=== PATIENT | female | born 1955 | race Caucasian/White ===

== ENCOUNTER 2023-09-27 10:40 | Observation (INO) | payer OTHER ==
[~2023-09-27] VITALS: Ht 157.5 cm; Wt 63.0 kg
[2023-09-27 10:50] VITALS: BP 106/63; PULSE 128; RESP 18; TEMP 97.6; O2SAT 95
[2023-09-27] MEDS ORDERED: cefTRIAXone 1,000 MG in DEXT 5% MINI-BAG PLUS 50 ML IV ONE (11:00)
[2023-09-27] MEDS ORDERED: NACL 0.9% 1,500 ML IV SCH (11:00)
[2023-09-27 11:31] LABS: BASOPHILS # (AUTO) 0.1 K/uL (0.00-0.22); BASOPHILS % (AUTO) 0.6 % (0.0-2.0); EOSINOPHILS # (AUTO) 0.1 K/uL (0-0.4); EOSINOPHILS % (AUTO) 0.7 % (0.0-4.0); HEMATOCRIT 28.7 % (36-48); HEMOGLOBIN 9.5 g/dL (12.0-16.0); LYMPHOCYTES # (AUTO) 0.9 K/uL (2.5-16.5); MEAN CORPUSCULAR HEMOGLOBIN 25 pg (27-31); MEAN CORPUSCULAR HGB CONC 33 g/dL (33-37); MEAN CORPUSCULAR VOLUME 75.8 fL (80-94); MONOCYTES # (AUTO) 0.6 K/uL (0.8-1.0); MONOCYTES % (AUTO) 4.7 % (1.7-9.3); NEUTROPHILS # (AUTO) 11.6 K/uL (1.8-7.7); PLATELET COUNT (AUTO) 321 K/uL (140-450); RED BLOOD CELL COUNT(AUTO) 3.79 MIL/uL (4.20-5.40); RED CELL DISTRIBUTION WIDTH 15.2 % (11.6-13.7); WHITE BLOOD COUNT (AUTO) 13.3 K/uL (4.8-10.8)
[2023-09-27 12:08] LABS: LACTIC ACID 1.9 mmol/L (0.4-2.0)
[2023-09-27] MEDS ORDERED: cefTRIAXone 1,000 MG VIAL ONE (12:13)
[2023-09-27 12:40] VITALS: O2SAT 92
[2023-09-27 12:46] LABS: ANION GAP 14.4 (8-16); CALCIUM 8.9 mg/dL (8.5-10.1); CREATININE 0.8 mg/dL (0.6-1.3); POTASSIUM 3.4 mmol/L (3.5-5.1)
[2023-09-27 12:50] LABS: APPEARANCE,URINE CLEAR (CLEAR); BILIRUBIN,URINE NEGATIVE (NEGATIVE); BLOOD, URINE NEGATIVE (NEGATIVE); COLOR,URINE YELLOW (YELLOW); LEUKOCYTE ESTERASE ,URINE NEGATIVE (NEGATIVE); NITRITE, URINE NEGATIVE (NEGATIVE); PROTEIN,URINE NEGATIVE (NEGATIVE); UGLUCOSE NEGATIVE (NEGATIVE); UROBILINOGEN,URINE 0.2 EU/dL (0.2 - 1)
[2023-09-27] MEDS ORDERED: LEVO0.0211 PO (13:12)
[2023-09-27] MEDS ORDERED: DOXE10CA PO (13:12)
[2023-09-27] MEDS ORDERED: GABA-636 PO (13:12)
[2023-09-27 13:46] LABS: FLU A ANTIGEN negative (NEGATIVE); FLU B ANTIGEN negative (NEGATIVE)
[2023-09-27] MEDS ORDERED: ONDANSETRON 4 MG/2 ML VIAL IVP PRN (14:10)
[2023-09-27] MEDS ORDERED: HYDROcodone/APAP 5/325 MG 1 TAB TAB PO PRN (14:10)
[2023-09-27] MEDS ORDERED: POTASSIUM CHLORIDE 10 MEQ TABER PO PRN (14:10)
[2023-09-27] MEDS ORDERED: MORPHINE SULFATE 4 MG/ML SYR IVP PRN (14:10)
[2023-09-27] MEDS ORDERED: ACETAMINOPHEN 325 MG TAB PO PRN (14:10)
[2023-09-27] MEDS ORDERED: KCL 20 MEQ IN 100 mL PREMIX 200 ML IV PRN (14:10)
[2023-09-27] MEDS: NACL 0.9% 1,000 ML IV SCH ×2 (14:41→15:13)
[2023-09-27 15:00] VITALS: BP 141/63; PULSE 100; PULSE 18; RESP 18; TEMP 97.6; O2SAT 94
[2023-09-27 16:00] VITALS: BP 148/63; PULSE 92; RESP 16; TEMP 98; O2SAT 97
[2023-09-27] MEDS: AZITHROMYCIN 500 MG in DEXTROSE 5% 250 ML IV SCH (16:23)
[2023-09-27 20:00] VITALS: PULSE 77; RESP 20
[2023-09-27] MEDS ORDERED: DOXEPIN 10 MG CAP PO STA (21:47)
[2023-09-27] MEDS ORDERED: DOXEPIN 10 MG CAP ONE (23:03)
[2023-09-28] VITALS: BP 118/63; PULSE 78; RESP 18; TEMP 98.4; O2SAT 95
[2023-09-28 05:37] LABS: BASOPHILS # (AUTO) 0.1 K/uL (0.00-0.22); BASOPHILS % (AUTO) 0.6 % (0.0-2.0); EOSINOPHILS # (AUTO) 0.4 K/uL (0-0.4); EOSINOPHILS % (AUTO) 3.9 % (0.0-4.0); HEMATOCRIT 27.2 % (36-48); HEMOGLOBIN 8.9 g/dL (12.0-16.0); LYMPHOCYTES # (AUTO) 1.2 K/uL (2.5-16.5); LYMPHOCYTES % (AUTO) 10.8 % (20.5-51.1); MEAN CORPUSCULAR HEMOGLOBIN 25 pg (27-31); MEAN CORPUSCULAR HGB CONC 33 g/dL (33-37); MEAN CORPUSCULAR VOLUME 77.3 fL (80-94); MONOCYTES # (AUTO) 0.8 K/uL (0.8-1.0); MONOCYTES % (AUTO) 7.3 % (1.7-9.3); NEUTROPHILS # (AUTO) 8.4 K/uL (1.8-7.7); NEUTROPHILS % (AUTO) 77.4 % (42.2-75.2); PLATELET COUNT (AUTO) 289 K/uL (140-450); RED BLOOD CELL COUNT(AUTO) 3.52 MIL/uL (4.20-5.40); RED CELL DISTRIBUTION WIDTH 15.7 % (11.6-13.7); WHITE BLOOD COUNT (AUTO) 10.9 K/uL (4.8-10.8)
[2023-09-28 06:07] LABS: ANION GAP 14.8 (8-16); CALCIUM 8.5 mg/dL (8.5-10.1); CARBON DIOXIDE 23.9 mmol/L (21-32); CREATININE 0.8 mg/dL (0.6-1.3); POTASSIUM 4.7 mmol/L (3.5-5.1)
[2023-09-28 08:00] VITALS: BP 116/50; PULSE 103; RESP 18; TEMP 97.2; O2SAT 96
[2023-09-28] MEDS ORDERED: ENOXAPARIN 40 MG/0.4 ML SYR SUBQ SCH (09:00)
[2023-09-28] MEDS ORDERED: DOCUSATE SODIUM 100 MG GELCAP PO SCH (09:00)
[2023-09-28] MEDS: NACL 0.9% 1,000 ML IV SCH (09:29)
[2023-09-28] MEDS ORDERED: AZIT250T11 PO (13:22)
[2023-09-28] MEDS ORDERED: ASPI-1856 PO (13:22)
[2023-09-28] MEDS: AZITHROMYCIN 500 MG in DEXTROSE 5% 250 ML IV SCH (15:03)
[2023-09-28 15:42] VITALS: BP 130/59; PULSE 108; RESP 20; TEMP 97.7
[2023-09-28 16:00] VITALS: BP 130/59; PULSE 108; RESP 20; TEMP 98.9; O2SAT 95
[2023-09-29] MEDS ORDERED: ECOTRIN 81 MG TABEC PO SCH (09:00)
== END 2023-09-28 16:50 | disposition home or self-care (01) ==
LOC: MED 10:40 → MTU 14:08
PROVIDERS: ADMIT Student in an Organized Health Care Education/Training Program; ATTEND Student in an Organized Health Care Education/Training Program
DX: I21.4 Non-ST elevation (NSTEMI) myocardial infarction (principal); Z20.822 Contact with and (suspected) exposure to COVID-19; J18.9 Pneumonia, unspecified organism; J96.01 Acute respiratory failure with hypoxia; E03.9 Hypothyroidism, unspecified; Z90.710 Acquired absence of both cervix and uterus; Z79.899 Other long term (current) drug therapy
CPT/HCPCS: 36415; 71045; 80048; 81003; 83605; 83880; 84484; 85025; 87040; 87081; 87086; 87426; 87804; 93005; 96361; 96365; 96366; 96367; 96372; 99285; G0378; J0456; J0696; J1650; J7060

== ENCOUNTER 2023-10-06 09:59 | Observation (INO) | payer OTHER ==
[~2023-10-06] VITALS: Ht 154.9 cm; Wt 58.1 kg
[~2023-10-06 09:59] MED LIST: ASPI-1856 PO; AZIT250T11 PO; DOXE10CA PO; GABA-636 PO; LEVO0.0211 PO
[2023-10-06 10:03] VITALS: BP 113/60; PULSE 127; RESP 22; TEMP 97.9; O2SAT 93
[2023-10-06 11:49] LABS: BASOPHILS # (AUTO) 0.1 K/uL (0.00-0.22); BASOPHILS % (AUTO) 0.6 % (0.0-2.0); EOSINOPHILS # (AUTO) 0.1 K/uL (0-0.4); EOSINOPHILS % (AUTO) 0.9 % (0.0-4.0); HEMATOCRIT 26.8 % (36-48); HEMOGLOBIN 8.7 g/dL (12.0-16.0); LYMPHOCYTES # (AUTO) 0.6 K/uL (2.5-16.5); LYMPHOCYTES % (AUTO) 4.9 % (20.5-51.1); MEAN CORPUSCULAR HEMOGLOBIN 25 pg (27-31); MEAN CORPUSCULAR HGB CONC 32 g/dL (33-37); MEAN CORPUSCULAR VOLUME 75.8 fL (80-94); MONOCYTES # (AUTO) 0.7 K/uL (0.8-1.0); MONOCYTES % (AUTO) 6.1 % (1.7-9.3); NEUTROPHILS # (AUTO) 9.9 K/uL (1.8-7.7); NEUTROPHILS % (AUTO) 87.5 % (42.2-75.2); PLATELET COUNT (AUTO) 343 K/uL (140-450); RED BLOOD CELL COUNT(AUTO) 3.54 MIL/uL (4.20-5.40); RED CELL DISTRIBUTION WIDTH 15.9 % (11.6-13.7); WHITE BLOOD COUNT (AUTO) 11.3 K/uL (4.8-10.8)
[2023-10-06 12:10] LABS: ALBUMIN 2.6 g/dL (3.4-5.0); ANION GAP 13.9 (8-16); CALCIUM 8.4 mg/dL (8.5-10.1); CARBON DIOXIDE 22.6 mmol/L (21-32); POTASSIUM 3.5 mmol/L (3.5-5.1); TOTAL BILIRUBIN 0.5 mg/dL (0.0-1.0); TOTAL PROTEIN, SERUM 6.9 g/dL (6.4-8.2)
[2023-10-06 12:14] LABS: FLU A ANTIGEN negative (NEGATIVE); FLU B ANTIGEN negative (NEGATIVE)
[2023-10-06] MEDS ORDERED: CEFEPIME 1,000 MG in DEXTROSE 5% 50 ML IV ONE (13:40)
[2023-10-06] MEDS ORDERED: CEFEPIME 1,000 MG VIAL ONE (13:53)
[2023-10-06] MEDS ORDERED: LOVENOX 1MG/KG Q12H SUBQ SCH (14:30)
[2023-10-06] MEDS ORDERED: ENOXAPARIN 60 MG/0.6 ML SYR SUBQ ONE (15:25)
[2023-10-06] MEDS ORDERED: ONDANSETRON 4 MG/2 ML VIAL IVP PRN (17:15)
[2023-10-06] MEDS ORDERED: MORPHINE SULFATE 4 MG/ML SYR IVP PRN (17:15)
[2023-10-06] MEDS ORDERED: MAG SULF 2000 MG/WATER PREMIX 50 ML IV PRN (17:15)
[2023-10-06] MEDS ORDERED: POTASSIUM CHLORIDE 10 MEQ TABER PO PRN (17:15)
[2023-10-06] MEDS ORDERED: KCL 20 MEQ IN 100 mL PREMIX 200 ML IV PRN (17:15)
[2023-10-06] MEDS ORDERED: HYDROcodone/APAP 5/325 MG 1 TAB TAB PO PRN (17:15)
[2023-10-06] MEDS ORDERED: ACETAMINOPHEN 325 MG TAB PO PRN (17:15)
[2023-10-06] MEDS ORDERED: LORazepam 1 MG TAB PO PRN (17:15)
[2023-10-06 20:45] VITALS: PULSE 118; PULSE 126; RESP 20; O2SAT 96
[2023-10-06] MEDS: ZOLPIDEM 5 MG TAB PO PRN (21:58)
[2023-10-07] VITALS: BP 121/67; PULSE 115; PULSE 118; RESP 20; TEMP 97; O2SAT 97
[2023-10-07 04:00] VITALS: BP 111/59; PULSE 112; PULSE 114; RESP 20; TEMP 97.1; O2SAT 97
[2023-10-07 06:38] LABS: BASOPHILS # (AUTO) 0.1 K/uL (0.00-0.22); BASOPHILS % (AUTO) 0.6 % (0.0-2.0); EOSINOPHILS # (AUTO) 0.2 K/uL (0-0.4); EOSINOPHILS % (AUTO) 1.3 % (0.0-4.0); HEMATOCRIT 27.3 % (36-48); HEMOGLOBIN 8.8 g/dL (12.0-16.0); LYMPHOCYTES % (AUTO) 8.2 % (20.5-51.1); MEAN CORPUSCULAR HEMOGLOBIN 25 pg (27-31); MEAN CORPUSCULAR HGB CONC 32 g/dL (33-37); MEAN CORPUSCULAR VOLUME 75.7 fL (80-94); MONOCYTES # (AUTO) 0.8 K/uL (0.8-1.0); MONOCYTES % (AUTO) 6.8 % (1.7-9.3); NEUTROPHILS # (AUTO) 10.5 K/uL (1.8-7.7); NEUTROPHILS % (AUTO) 83.1 % (42.2-75.2); PLATELET COUNT (AUTO) 378 K/uL (140-450); RED CELL DISTRIBUTION WIDTH 16.1 % (11.6-13.7); WHITE BLOOD COUNT (AUTO) 12.6 K/uL (4.8-10.8)
[2023-10-07 07:00] LABS: ANION GAP 14.1 (8-16); CALCIUM 8.6 mg/dL (8.5-10.1); CARBON DIOXIDE 22.9 mmol/L (21-32); CREATININE 0.9 mg/dL (0.6-1.3)
[2023-10-07 08:00] VITALS: BP 101/59; PULSE 101; PULSE 109; RESP 19; RESP 20; TEMP 97.2; O2SAT 97
[2023-10-07] MEDS: ENOXAPARIN 40 MG/0.4 ML SYR SUBQ SCH ×2 (08:43→20:33)
[2023-10-07 12:00] VITALS: BP 102/57; PULSE 113; PULSE 117; RESP 20; TEMP 97.6; O2SAT 97
[2023-10-07] MEDS: POTASSIUM CHL 10 MEQ/D5-1/2NS 1,000 ML IV SCH (14:16)
[2023-10-07 16:00] VITALS: BP 110/59; PULSE 97; PULSE 98; RESP 20; TEMP 98; O2SAT 97
[2023-10-07 20:00] VITALS: BP 102/55; PULSE 108; PULSE 112; RESP 20; TEMP 96.4; O2SAT 97
[2023-10-07] MEDS: ZOLPIDEM 5 MG TAB PO PRN (20:25)
[2023-10-08] VITALS: BP 110/67; PULSE 110; PULSE 98; TEMP 96.1; O2SAT 94
[2023-10-08 04:00] VITALS: BP 109/56; PULSE 110; TEMP 97.4; O2SAT 97
[2023-10-08] MEDS: POTASSIUM CHL 10 MEQ/D5-1/2NS 1,000 ML IV SCH (04:20)
[2023-10-08 06:28] LABS: BASOPHILS # (AUTO) 0.1 K/uL (0.00-0.22); BASOPHILS % (AUTO) 0.8 % (0.0-2.0); EOSINOPHILS # (AUTO) 0.4 K/uL (0-0.4); EOSINOPHILS % (AUTO) 2.9 % (0.0-4.0); HEMATOCRIT 24.7 % (36-48); HEMOGLOBIN 8.1 g/dL (12.0-16.0); LYMPHOCYTES # (AUTO) 0.8 K/uL (2.5-16.5); LYMPHOCYTES % (AUTO) 6.8 % (20.5-51.1); MEAN CORPUSCULAR HEMOGLOBIN 25 pg (27-31); MEAN CORPUSCULAR HGB CONC 33 g/dL (33-37); MEAN CORPUSCULAR VOLUME 75.5 fL (80-94); MONOCYTES # (AUTO) 0.7 K/uL (0.8-1.0); MONOCYTES % (AUTO) 5.9 % (1.7-9.3); NEUTROPHILS # (AUTO) 10.1 K/uL (1.8-7.7); NEUTROPHILS % (AUTO) 83.6 % (42.2-75.2); PLATELET COUNT (AUTO) 362 K/uL (140-450); RED BLOOD CELL COUNT(AUTO) 3.27 MIL/uL (4.20-5.40); RED CELL DISTRIBUTION WIDTH 15.8 % (11.6-13.7); WHITE BLOOD COUNT (AUTO) 12.1 K/uL (4.8-10.8)
[2023-10-08 06:36] LABS: ANION GAP 15.6 (8-16); CARBON DIOXIDE 22.2 mmol/L (21-32); CREATININE 0.9 mg/dL (0.6-1.3); POTASSIUM 3.8 mmol/L (3.5-5.1)
[2023-10-08 08:00] VITALS: BP 128/61; PULSE 109; PULSE 117; PULSE 72; RESP 19; RESP 20; TEMP 97.7; O2SAT 94
[2023-10-08] MEDS ORDERED: LEVOTHYROXINE 0.025 MG TAB PO SCH (09:38)
[2023-10-08] MEDS: ENOXAPARIN 40 MG/0.4 ML SYR SUBQ SCH (09:38)
[2023-10-08] MEDS ORDERED: GABAPENTIN 100 MG CAP PO SCH (10:00)
[2023-10-08] MEDS ORDERED: LOV40I SUBQ (11:58)
[2023-10-08 12:00] VITALS: BP 107/87; PULSE 111; TEMP 97.7; O2SAT 97
[2023-10-08] MEDS ORDERED: ONDA-188 SL (16:03)
[2023-10-08 16:10] VITALS: BP 127/61; PULSE 75; RESP 19; TEMP 98.7
[2023-10-09] MEDS ORDERED: LEVOTHYROXINE 0.025 MG TAB PO SCH (06:30)
[2023-10-09] MEDS ORDERED: GABAPENTIN 100 MG CAP PO SCH (09:00)
[2023-10-09] MEDS ORDERED: DOXEPIN 10 MG CAP PO SCH (09:00)
== END 2023-10-08 17:15 | disposition home or self-care (01) ==
LOC: MED 09:59 → MMU 17:12 → MTU 19:52
PROVIDERS: ADMIT Hospitalist; ATTEND Hospitalist
DX: U07.1 COVID-19 (principal); J96.01 Acute respiratory failure with hypoxia; I26.99 Other pulmonary embolism without acute cor pulmonale; R91.8 Other nonspecific abnormal finding of lung field; R62.7 Adult failure to thrive; E44.0 Moderate protein-calorie malnutrition; D64.9 Anemia, unspecified; L53.8 Other specified erythematous conditions; Z68.24 Body mass index [BMI] 24.0-24.9, adult; Z79.82 Long term (current) use of aspirin; Z79.899 Other long term (current) drug therapy; Z98.890 Other specified postprocedural states
CPT/HCPCS: 36415; 71045; 71275; 74178; 76705; 80048; 80053; 83880; 84484; 85025; 85379; 85730; 86886; 86900; 86901; 87081; 87426; 87804; 93005; 93307; 96361; 96365; 96372; 96375; 97116; 97163; 99291; G0378; J0692; J1650; J2405; Q0092; Q9967; J1644

== ENCOUNTER 2023-10-20 10:02 | Observation (INO) | payer OTHER ==
[~2023-10-20] VITALS: Ht 154.9 cm; Wt 59.9 kg
[~2023-10-20 10:02] MED LIST changes: -AZIT250T11 PO; +LOV40I SUBQ; +ONDA-188 SL
[2023-10-20 10:04] VITALS: BP 111/60; PULSE 112; RESP 16; TEMP 97.6; O2SAT 96
[2023-10-20] MEDS ORDERED: FURO-572 PO (12:02)
[2023-10-20] MEDS ORDERED: FUROSEMIDE 20 MG TAB PO ONE (12:05)
[2023-10-20] MEDS ORDERED: FUROSEMIDE 40 MG/4 ML VIAL IVP SCH (12:25)
[2023-10-20 12:44] LABS: BASOPHILS # (AUTO) 0.1 K/uL (0.00-0.22); BASOPHILS % (AUTO) 0.8 % (0.0-2.0); EOSINOPHILS # (AUTO) 0.2 K/uL (0-0.4); EOSINOPHILS % (AUTO) 1.1 % (0.0-4.0); HEMATOCRIT 25.7 % (36-48); HEMOGLOBIN 8.2 g/dL (12.0-16.0); LYMPHOCYTES # (AUTO) 0.8 K/uL (2.5-16.5); LYMPHOCYTES % (AUTO) 5.9 % (20.5-51.1); MEAN CORPUSCULAR HEMOGLOBIN 24 pg (27-31); MEAN CORPUSCULAR HGB CONC 32 g/dL (33-37); MEAN CORPUSCULAR VOLUME 74.2 fL (80-94); MONOCYTES # (AUTO) 0.9 K/uL (0.8-1.0); MONOCYTES % (AUTO) 6.5 % (1.7-9.3); NEUTROPHILS # (AUTO) 11.5 K/uL (1.8-7.7); NEUTROPHILS % (AUTO) 85.7 % (42.2-75.2); PLATELET COUNT (AUTO) 337 K/uL (140-450); RED BLOOD CELL COUNT(AUTO) 3.46 MIL/uL (4.20-5.40); RED CELL DISTRIBUTION WIDTH 17.6 % (11.6-13.7); WHITE BLOOD COUNT (AUTO) 13.4 K/uL (4.8-10.8)
[2023-10-20] MEDS ORDERED: OSC500 PO (12:48)
[2023-10-20] MEDS ORDERED: LOV80I SC (12:48)
[2023-10-20] MEDS ORDERED: CHOL400T PO (12:48)
[2023-10-20] MEDS ORDERED: SINE25 PO (12:48)
[2023-10-20 13:01] LABS: INR 1.13 (0.8-1.2); PARTIAL THROMBOPLASTIN TIME 36.5 secs (22-35.6); PROTHROMBIN TIME 11.8 secs (10.8-13.4)
[2023-10-20 13:05] LABS: ALBUMIN 2.4 g/dL (3.4-5.0); ANION GAP 13.3 (8-16); CALCIUM 8.4 mg/dL (8.5-10.1); CARBON DIOXIDE 27.1 mmol/L (21-32); POTASSIUM 4.4 mmol/L (3.5-5.1); TOTAL BILIRUBIN 0.6 mg/dL (0.0-1.0); TOTAL PROTEIN, SERUM 6.9 g/dL (6.4-8.2)
[2023-10-20] MEDS ORDERED: NACL 0.9% 1,000 ML IV ONE (13:35)
[2023-10-20] MEDS ORDERED: HYDROcodone/APAP 5/325 MG 1 TAB TAB PO PRN (15:00)
[2023-10-20] MEDS ORDERED: ALBUTEROL 0.083% 2.5 MG/3 ML NEBU INH PRN (15:00)
[2023-10-20] MEDS ORDERED: HEPARIN PER PHARMACY MC PRN (17:15)
[2023-10-20] MEDS: NACL 0.9% 1,000 ML IV SCH (18:56)
[2023-10-20 20:09] VITALS: O2SAT 99
[2023-10-20 20:40] VITALS: PULSE 107; RESP 18; O2SAT 91
[2023-10-20 20:49] VITALS: PULSE 112
[2023-10-20] MEDS ORDERED: DOXEPIN 10 MG CAP PO SCH (21:00)
[2023-10-20] MEDS: hePARIN / DEXT 5% PREMIX 250 ML IV SCH (22:02)
[2023-10-21] VITALS: BP 111/52; PULSE 100; PULSE 98; RESP 17; TEMP 97.7; O2SAT 96
[2023-10-21 04:00] VITALS: BP 108/56; PULSE 94; PULSE 95; RESP 18; TEMP 97.3; O2SAT 96
[2023-10-21 04:31] LABS: BASOPHILS # (AUTO) 0.1 K/uL (0.00-0.22); BASOPHILS % (AUTO) 0.9 % (0.0-2.0); EOSINOPHILS # (AUTO) 0.4 K/uL (0-0.4); EOSINOPHILS % (AUTO) 3.6 % (0.0-4.0); HEMATOCRIT 22.3 % (36-48); HEMOGLOBIN 7.1 g/dL (12.0-16.0); LYMPHOCYTES # (AUTO) 0.8 K/uL (2.5-16.5); LYMPHOCYTES % (AUTO) 7.6 % (20.5-51.1); MEAN CORPUSCULAR HEMOGLOBIN 24 pg (27-31); MEAN CORPUSCULAR HGB CONC 32 g/dL (33-37); MEAN CORPUSCULAR VOLUME 74.5 fL (80-94); MONOCYTES # (AUTO) 0.6 K/uL (0.8-1.0); MONOCYTES % (AUTO) 6.1 % (1.7-9.3); NEUTROPHILS # (AUTO) 8.2 K/uL (1.8-7.7); NEUTROPHILS % (AUTO) 81.8 % (42.2-75.2); PLATELET COUNT (AUTO) 310 K/uL (140-450); RED CELL DISTRIBUTION WIDTH 17.1 % (11.6-13.7)
[2023-10-21 04:45] LABS: ANION GAP 12.4 (8-16); CALCIUM 7.8 mg/dL (8.5-10.1); CARBON DIOXIDE 28.1 mmol/L (21-32); CREATININE 0.8 mg/dL (0.6-1.3); POTASSIUM 3.5 mmol/L (3.5-5.1); TOTAL BILIRUBIN 0.5 mg/dL (0.0-1.0)
[2023-10-21] MEDS: hePARIN / DEXT 5% PREMIX 250 ML IV SCH (06:07)
[2023-10-21] MEDS ORDERED: LEVOTHYROXINE 0.025 MG TAB PO SCH (06:30)
[2023-10-21] MEDS: NACL 0.9% 1,000 ML IV SCH (07:33)
[2023-10-21 10:49] VITALS: RESP 18; O2SAT 96
[2023-10-21 10:51] VITALS: BP 111/62; PULSE 94; RESP 18; TEMP 97.3; O2SAT 96
[2023-10-21 12:07] VITALS: PULSE 94; RESP 18; O2SAT 96
[2023-10-21] MEDS ORDERED: APIX5TAB PO (14:48)
[2023-10-21] MEDS ORDERED: APIXABAN 2.5 MG TAB ONE (17:20)
[2023-10-21] MEDS ORDERED: APIXABAN 2.5 MG TAB PO SCH (21:00)
== END 2023-10-21 18:44 | disposition home or self-care (01) ==
LOC: MED 10:02 → MMU 14:58 → MTU 18:49
PROVIDERS: ADMIT Internal Medicine; ATTEND Internal Medicine
DX: I26.99 Other pulmonary embolism without acute cor pulmonale (principal); I82.402 Acute embolism and thrombosis of unspecified deep veins of left lower extremity; R91.8 Other nonspecific abnormal finding of lung field; C78.7 Secondary malignant neoplasm of liver and intrahepatic bile duct; C79.70 Secondary malignant neoplasm of unspecified adrenal gland; E03.9 Hypothyroidism, unspecified; M32.9 Systemic lupus erythematosus, unspecified; Z90.710 Acquired absence of both cervix and uterus; Z85.41 Personal history of malignant neoplasm of cervix uteri; Z82.69 Family history of other diseases of the musculoskeletal system and connective tissue; Z79.899 Other long term (current) drug therapy
CPT/HCPCS: 36415; 71275; 73630; 80053; 83880; 84484; 85025; 85610; 85730; 87081; 93005; 93971; 94760; 96361; 96365; 96366; 96376; 99285; G0378; J1644; Q0092; Q9967

== ENCOUNTER 2023-11-08 04:55 | Inpatient (IN) | payer OTHER ==
[2023-11-08] VITALS (7 sets, daily range): BP systolic 106–144; BP diastolic 38–84; PULSE 120–134; RESP 18–22; TEMP 96.7–98.2; O2SAT 96–99
[~2023-11-08] VITALS: Ht 162.6 cm; Wt 64.9 kg
[~2023-11-08 04:55] MED LIST changes: +APIX5TAB PO; -ASPI-1856 PO; +CHOL400T PO; -DOXE10CA PO; +FURO-572 PO; -LOV40I SUBQ; +OSC500 PO; +SINE25 PO
[2023-11-08 05:40] LABS: BASOPHILS # (AUTO) 0.1 K/uL (0.00-0.22); BASOPHILS % (AUTO) 0.4 % (0.0-2.0); EOSINOPHILS % (AUTO) 0.1 % (0.0-4.0); HEMATOCRIT 33.1 % (36-48); HEMOGLOBIN 10.2 g/dL (12.0-16.0); LYMPHOCYTES # (AUTO) 0.8 K/uL (2.5-16.5); LYMPHOCYTES % (AUTO) 2.8 % (20.5-51.1); MEAN CORPUSCULAR HEMOGLOBIN 23 pg (27-31); MEAN CORPUSCULAR HGB CONC 31 g/dL (33-37); MEAN CORPUSCULAR VOLUME 75.4 fL (80-94); MONOCYTES # (AUTO) 1.6 K/uL (0.8-1.0); MONOCYTES % (AUTO) 5.8 % (1.7-9.3); NEUTROPHILS # (AUTO) 25.4 K/uL (1.8-7.7); NEUTROPHILS % (AUTO) 90.9 % (42.2-75.2); PLATELET COUNT (AUTO) 144 K/uL (140-450); RED BLOOD CELL COUNT(AUTO) 4.39 MIL/uL (4.20-5.40); RED CELL DISTRIBUTION WIDTH 20.8 % (11.6-13.7)
[2023-11-08 05:55] LABS: ANION GAP 27.4 (8-16); CARBON DIOXIDE 14.5 mmol/L (21-32); CREATININE 1.1 mg/dL (0.6-1.3); POTASSIUM 4.9 mmol/L (3.5-5.1); WHITE BLOOD COUNT (AUTO) 27.9 K/uL (4.8-10.8)
[2023-11-08 05:59] LABS: ALBUMIN 2.2 g/dL (3.4-5.0); BILIRUBIN,DIRECT 3.6 mg/dL (0.0-0.3); TOTAL BILIRUBIN 4.5 mg/dL (0.0-1.0); TOTAL PROTEIN, SERUM 6.7 g/dL (6.4-8.2)
[2023-11-08] MEDS: MORPHINE SULFATE 4 MG/ML SYR IVP ONE (06:08)
[2023-11-08 06:09] LABS: LACTIC ACID 10.3 mmol/L (0.4-2.0)
[2023-11-08 06:30] LABS: APPEARANCE,URINE SL CLOUDY (CLEAR); BILIRUBIN,URINE 2+ (NEGATIVE); BLOOD, URINE TRACE-I (NEGATIVE); COLOR,URINE YELLOW (YELLOW); LEUKOCYTE ESTERASE ,URINE NEGATIVE (NEGATIVE); NITRITE, URINE NEGATIVE (NEGATIVE); PROTEIN,URINE 1+ (NEGATIVE); UGLUCOSE NEGATIVE (NEGATIVE)
[2023-11-08] MEDS: NACL 0.9% 1,000 ML IV ONE (06:31)
[2023-11-08 06:41] LABS: ICTOTEST POSITIVE (NEGATIVE)
[2023-11-08 06:42] LABS: BACTERIA,URINE FEW /HPF (None Seen); RBC,URINE 0-5 /HPF (0-5); SQUAMOUS EPITHELIAL CELL,UR 0-3 (FEW) /LPF (0-3 (FEW))
[2023-11-08] MEDS ORDERED: cefTRIAXone 1,000 MG VIAL ONE (08:13)
[2023-11-08] MEDS: cefTRIAXone 1,000 MG in DEXT 5% MINI-BAG PLUS 50 ML IV ONE (08:18)
[2023-11-08] MEDS: SODIUM PHOSPHATE 118 ML ENEM RC ONE (09:19)
[2023-11-08] MEDS ORDERED: HYDROcodone/APAP 5/325 MG 1 TAB TAB PO PRN (10:55)
[2023-11-08] MEDS ORDERED: POTASSIUM CHLORIDE 10 MEQ TABER PO PRN (10:55)
[2023-11-08] MEDS ORDERED: MAGNESIUM OXIDE 400 MG TAB PO PRN (10:55)
[2023-11-08] MEDS ORDERED: ACETAMINOPHEN 325 MG TAB PO PRN (10:55)
[2023-11-08] MEDS ORDERED: MAG SULF 2000 MG/WATER PREMIX 50 ML IV PRN (10:55)
[2023-11-08 11:46] LABS: INR 2.57 (0.8-1.2); PROTHROMBIN TIME 25.8 secs (10.8-13.4)
[2023-11-08] MEDS: PIPERACILLIN/TAZOBACTAM 3.375 GM in DEXTROSE 5% 50 ML IV SCH ×2 (12:32→17:55)
[2023-11-08] MEDS: hePARIN / DEXT 5% PREMIX 250 ML IV SCH (13:01)
[2023-11-08] MEDS: Z-GUARD PASTE TP ONE (13:33)
[2023-11-08 15:17] LABS: BLOOD GAS PH 7.338 (7.35-7.45)
[2023-11-08 15:18] LABS: BLOOD GAS BASE EXCESS -14.5 mmol/L (-2.0-2.0); BLOOD GAS HCO3 9.2 mmol/L (22-26); BLOOD GAS O2 SAT% 95.4 % (92.0-98.5); BLOOD GAS PCO2 17.6 mmHg (35-45)
[2023-11-08] MEDS: SODIUM BICARBONATE 8.4% PFS 50 MEQ/50 ML SYR IVP SCH (15:37)
[2023-11-08] MEDS: SODIUM BICARBONATE 8.4% 150 MEQ in DEXTROSE 5% 1,000 ML IV SCH (20:55)
[2023-11-08] MEDS ORDERED: VANCOMYCIN PER PHARMACY MC PRN (20:55)
[2023-11-08] MEDS: AMIODARONE 450 MG in DEXTROSE 5% 250 ML IV SCH (22:00)
[2023-11-08] MEDS: VANCOMYCIN 1GM/DEXT 5% PREMIX 200 ML IV SCH (22:00)
[2023-11-08] MEDS: NACL 0.9% 500 ML IV ONE (22:44)
[2023-11-08] MEDS: SODIUM BICARBONATE 8.4% PFS 50 MEQ/50 ML SYR IVP ONE ×3 (22:45→23:07)
[2023-11-08] MEDS ORDERED: SODIUM BICARBONATE 8.4% PFS 50 MEQ/50 ML SYR IVP ONE (22:46)
[2023-11-08] MEDS: AMIODARONE 450 MG/9 ML VIAL IV ONE (22:53)
[2023-11-08] MEDS: AMIODARONE 150 MG in DEXTROSE 5% 100 ML IV ONE (22:57)
[2023-11-08] MEDS: AMIODARONE 150 MG/3 ML VIAL IV ONE (23:07)
[2023-11-08] MEDS: MORPHINE SULFATE 2 MG/ML SYR IVP PRN (23:15)
[2023-11-08] MEDS ORDERED: VANCOMYCIN 1,000 MG VIAL ONE (23:19)
[2023-11-09] VITALS (22 sets, daily range): BP systolic 86–121; BP diastolic 42–73; PULSE 99–134; RESP 18–37; TEMP 97.8–100.3; O2SAT 96–100
[2023-11-09 03:21] LABS: BASOPHILS # (AUTO) 0.1 K/uL (0.00-0.22); BASOPHILS % (AUTO) 0.2 % (0.0-2.0); HEMATOCRIT 26.8 % (36-48); HEMOGLOBIN 8.1 g/dL (12.0-16.0); LYMPHOCYTES # (AUTO) 1.2 K/uL (2.5-16.5); LYMPHOCYTES % (AUTO) 4.8 % (20.5-51.1); MEAN CORPUSCULAR HEMOGLOBIN 23 pg (27-31); MEAN CORPUSCULAR HGB CONC 30 g/dL (33-37); MEAN CORPUSCULAR VOLUME 76.3 fL (80-94); MONOCYTES # (AUTO) 1.5 K/uL (0.8-1.0); MONOCYTES % (AUTO) 5.9 % (1.7-9.3); NEUTROPHILS % (AUTO) 89.1 % (42.2-75.2); PLATELET COUNT (AUTO) 111 K/uL (140-450); RED BLOOD CELL COUNT(AUTO) 3.51 MIL/uL (4.20-5.40); RED CELL DISTRIBUTION WIDTH 20.7 % (11.6-13.7)
[2023-11-09 03:34] LABS: WHITE BLOOD COUNT (AUTO) 25.8 K/uL (4.8-10.8)
[2023-11-09 03:53] LABS: ANION GAP 28.9 (8-16); CALCIUM 8.2 mg/dL (8.5-10.1); CARBON DIOXIDE 17.2 mmol/L (21-32); POTASSIUM 5.1 mmol/L (3.5-5.1)
[2023-11-09 03:54] LABS: ALBUMIN 1.8 g/dL (3.4-5.0); CREATININE 0.5 mg/dL (0.6-1.3); TOTAL BILIRUBIN 3.8 mg/dL (0.0-1.0); TOTAL PROTEIN, SERUM 5.6 g/dL (6.4-8.2)
[2023-11-09 03:55] LABS: MAGNESIUM 2.5 mg/dL (1.8-2.4)
[2023-11-09] MEDS: AMIODARONE 450 MG/9 ML VIAL IV ONE (05:53)
[2023-11-09] MEDS: ACETAMINOPHEN 650 MG SUPP RC PRN (08:44)
[2023-11-09] MEDS: VANCOMYCIN 750 MG in DEXTROSE 5% 250 ML IV SCH (08:47)
[2023-11-09 12:49] LABS: INR 2.4 (0.8-1.2); PROTHROMBIN TIME 24.1 secs (10.8-13.4)
[2023-11-09 12:51] LABS: PARTIAL THROMBOPLASTIN TIME 80.7 secs (22-35.6)
[2023-11-09] MEDS ORDERED: PHENYLEPHRINE 50 MG in NACL 0.9% 250 ML IV PRN (15:40)
[2023-11-09 16:15] LABS: ALBUMIN 1.9 g/dL (3.4-5.0); BILIRUBIN,DIRECT 3.1 mg/dL (0.0-0.3); TOTAL BILIRUBIN 3.8 mg/dL (0.0-1.0); TOTAL PROTEIN, SERUM 5.6 g/dL (6.4-8.2)
[2023-11-09] MEDS ORDERED: PHARMACY TO DOSE MC SCH (17:45)
[2023-11-09] MEDS ORDERED: VASOPRESSIN 20 UNITS in NACL 0.9% 100 ML IV PRN (18:00)
[2023-11-09] MEDS: HYDROCORTISONE NA SUCC 100 MG/2 ML VIAL IV SCH (18:29)
[2023-11-09] MEDS: ACETYLCYSTEINE IV SCH ×3 (19:07→23:41)
[2023-11-09] MEDS: DEXTROSE 5% IV SCH ×3 (19:07→23:41)
[2023-11-09] MEDS: HEPARIN PER PHARMACY MC PRN (19:58)
[2023-11-09] MEDS: PHENYLEPHRINE 10 MG/ML VIAL ONE (22:26)
[2023-11-09] MEDS: PHENYLEPHRINE 10 MG in NACL 0.9% 250 ML IV PRN (22:30)
[2023-11-09] MEDS: AMIODARONE 200 MG TAB PO SCH (23:45)
[2023-11-10] VITALS (24 sets, daily range): BP systolic 94–128; BP diastolic 43–64; PULSE 107–148; RESP 16–28; TEMP 97.1–97.8; O2SAT 94–100
[2023-11-10] MEDS: HYDROCORTISONE NA SUCC 100 MG/2 ML VIAL IV SCH (01:57)
[2023-11-10 06:14] LABS: BASOPHILS % (AUTO) 0.2 % (0.0-2.0); EOSINOPHILS % (AUTO) 0.1 % (0.0-4.0); HEMATOCRIT 22.8 % (36-48); LYMPHOCYTES # (AUTO) 1.6 K/uL (2.5-16.5); LYMPHOCYTES % (AUTO) 5.9 % (20.5-51.1); MEAN CORPUSCULAR HEMOGLOBIN 23 pg (27-31); MEAN CORPUSCULAR HGB CONC 31 g/dL (33-37); MEAN CORPUSCULAR VOLUME 76.2 fL (80-94); MONOCYTES # (AUTO) 1.1 K/uL (0.8-1.0); MONOCYTES % (AUTO) 3.9 % (1.7-9.3); NEUTROPHILS # (AUTO) 25.1 K/uL (1.8-7.7); NEUTROPHILS % (AUTO) 89.9 % (42.2-75.2); PLATELET COUNT (AUTO) 87 K/uL (140-450); RED CELL DISTRIBUTION WIDTH 21.3 % (11.6-13.7)
[2023-11-10 06:35] LABS: ALBUMIN 1.4 g/dL (3.4-5.0); ANION GAP 27.3 (8-16); CALCIUM 6.5 mg/dL (8.5-10.1); CARBON DIOXIDE 22.6 mmol/L (21-32); CREATININE 1.9 mg/dL (0.6-1.3); MAGNESIUM 2.1 mg/dL (1.8-2.4); TOTAL BILIRUBIN 3.9 mg/dL (0.0-1.0); TOTAL PROTEIN, SERUM 4.6 g/dL (6.4-8.2)
[2023-11-10 06:44] LABS: POTASSIUM 2.9 mmol/L (3.5-5.1)
[2023-11-10 06:54] LABS: WHITE BLOOD COUNT (AUTO) 27.9 K/uL (4.8-10.8)
[2023-11-10] MEDS: PHENYLEPHRINE 50 MG in NACL 0.9% 250 ML IV PRN (08:23)
[2023-11-10] MEDS: VANCOMYCIN 1,000 MG in DEXTROSE 5% 250 ML IV SCH (09:54)
[2023-11-10] MEDS: LUBIPROSTONE 24 MCG CAPSULE PO SCH (17:00)
[2023-11-10 20:58] LABS: INR 2.1 (0.8-1.2); PROTHROMBIN TIME 21.3 secs (10.8-13.4)
[2023-11-10 21:00] LABS: PARTIAL THROMBOPLASTIN TIME 62.4 secs (22-35.6)
[2023-11-10] MEDS: bisacodyL 10 MG SUPP RC SCH (22:02)
[2023-11-10] MEDS: MORPHINE SULFATE 2 MG/ML SYR IVP PRN (22:02)
[2023-11-10] MEDS: AMIODARONE 150 MG in DEXTROSE 5% 100 ML IV ONE (22:32)
[2023-11-10] MEDS: AMIODARONE 450 MG in DEXTROSE 5% 250 ML IV SCH (22:43)
[2023-11-10] MEDS: AMIODARONE 150 MG/3 ML VIAL IV ONE (22:44)
[2023-11-10] MEDS: AMIODARONE 450 MG/9 ML VIAL IV ONE (22:44)
[2023-11-11] VITALS (25 sets, daily range): BP systolic 89–123; BP diastolic 42–62; PULSE 96–113; RESP 17–24; TEMP 97.1–97.9; O2SAT 94–98
[2023-11-11 03:24] LABS: BASOPHILS # (AUTO) 0.1 K/uL (0.00-0.22); BASOPHILS % (AUTO) 0.4 % (0.0-2.0); EOSINOPHILS % (AUTO) 0.1 % (0.0-4.0); HEMATOCRIT 23.6 % (36-48); HEMOGLOBIN 7.3 g/dL (12.0-16.0); LYMPHOCYTES # (AUTO) 1.4 K/uL (2.5-16.5); LYMPHOCYTES % (AUTO) 4.7 % (20.5-51.1); MEAN CORPUSCULAR HEMOGLOBIN 23 pg (27-31); MEAN CORPUSCULAR HGB CONC 31 g/dL (33-37); MEAN CORPUSCULAR VOLUME 75.2 fL (80-94); MONOCYTES # (AUTO) 1.2 K/uL (0.8-1.0); MONOCYTES % (AUTO) 3.9 % (1.7-9.3); PLATELET COUNT (AUTO) 73 K/uL (140-450); RED BLOOD CELL COUNT(AUTO) 3.15 MIL/uL (4.20-5.40); RED CELL DISTRIBUTION WIDTH 21.7 % (11.6-13.7)
[2023-11-11 04:17] LABS: ALBUMIN 1.5 g/dL (3.4-5.0); CALCIUM 6.6 mg/dL (8.5-10.1); CARBON DIOXIDE 23.5 mmol/L (21-32); CREATININE 2.3 mg/dL (0.6-1.3); TOTAL BILIRUBIN 4.7 mg/dL (0.0-1.0); TOTAL PROTEIN, SERUM 4.7 g/dL (6.4-8.2)
[2023-11-11 04:37] LABS: POTASSIUM 2.5 mmol/L (3.5-5.1)
[2023-11-11 04:38] LABS: NEUTROPHILS % (AUTO) 90.9 % (42.2-75.2); WHITE BLOOD COUNT (AUTO) 30.7 K/uL (4.8-10.8)
[2023-11-11] MEDS: KCL 20 MEQ IN 100 mL PREMIX 200 ML IV PRN (05:19)
[2023-11-11] MEDS: AMIODARONE 450 MG/9 ML VIAL IV ONE (05:49)
[2023-11-11] MEDS: ACETAMINOPHEN 100 ML IV SCH (10:35)
[2023-11-11] MEDS: HYDROmorphone 1 MG/ML AMP IVP SCH (16:22)
[2023-11-11] MEDS: ALBUTEROL SULFATE/IPRATROPIU 3 ML SOL IH SCH (19:28)
[2023-11-12] VITALS (27 sets, daily range): BP systolic 92–139; BP diastolic 34–61; PULSE 92–158; RESP 19–49; TEMP 97.3–98.1; O2SAT 91–97
[2023-11-12 05:57] LABS: HEMATOCRIT 26.2 % (36-48); HEMOGLOBIN 7.8 g/dL (12.0-16.0); MEAN CORPUSCULAR HEMOGLOBIN 23 pg (27-31); MEAN CORPUSCULAR HGB CONC 30 g/dL (33-37); MEAN CORPUSCULAR VOLUME 76.7 fL (80-94); PLATELET COUNT (AUTO) 97 K/uL (140-450); RED BLOOD CELL COUNT(AUTO) 3.41 MIL/uL (4.20-5.40); RED CELL DISTRIBUTION WIDTH 21.9 % (11.6-13.7)
[2023-11-12 06:25] LABS: WHITE BLOOD COUNT (AUTO) 35.6 K/uL (4.8-10.8)
[2023-11-12 06:32] LABS: ALBUMIN 1.4 g/dL (3.4-5.0); ANION GAP 35.9 (8-16); CALCIUM 6.7 mg/dL (8.5-10.1); CARBON DIOXIDE 20.3 mmol/L (21-32); CREATININE 2.7 mg/dL (0.6-1.3); MAGNESIUM 2.2 mg/dL (1.8-2.4); POTASSIUM 3.2 mmol/L (3.5-5.1); TOTAL PROTEIN, SERUM 4.8 g/dL (6.4-8.2)
[2023-11-12 06:40] LABS: LYMPHOCYTES % (MANUAL) 3 % (20-46); MONOCYTES % (MANUAL) 5 % (5-12)
[2023-11-12] MEDS: METOPROLOL 5 MG/5 ML VIAL IV PRN (06:46)
[2023-11-12 09:29] LABS: INR 3.2 (0.8-1.2); PARTIAL THROMBOPLASTIN TIME 31.6 secs (22-35.6); PROTHROMBIN TIME 31.8 secs (10.8-13.4)
[2023-11-12] MEDS: MINERAL OIL 135 ML ENEM RC SCH (10:59)
[2023-11-12] MEDS: FUROSEMIDE 20 MG/2 ML VIAL IVP SCH (17:06)
[2023-11-12] MEDS: MORPHINE SULFATE 2 MG/ML SYR IVP PRN (17:07)
[2023-11-12] MEDS: PHENYLEPHRINE 10 MG/ML VIAL ONE (21:45)
[2023-11-12 22:00] LABS: INR 4.17 (0.8-1.2); PARTIAL THROMBOPLASTIN TIME 81.9 secs (22-35.6); PROTHROMBIN TIME 40.9 secs (10.8-13.4)
[2023-11-13] VITALS (27 sets, daily range): BP systolic 66–106; BP diastolic 38–64; PULSE 101–138; RESP 14–34; TEMP 98.2–100.1; O2SAT 93–100
[2023-11-13 05:47] LABS: BASOPHILS # (AUTO) 0.1 K/uL (0.00-0.22); BASOPHILS % (AUTO) 0.2 % (0.0-2.0); HEMATOCRIT 25.4 % (36-48); HEMOGLOBIN 7.4 g/dL (12.0-16.0); LYMPHOCYTES # (AUTO) 1.7 K/uL (2.5-16.5); LYMPHOCYTES % (AUTO) 3.7 % (20.5-51.1); MEAN CORPUSCULAR HEMOGLOBIN 23 pg (27-31); MEAN CORPUSCULAR HGB CONC 29 g/dL (33-37); MONOCYTES # (AUTO) 1.5 K/uL (0.8-1.0); MONOCYTES % (AUTO) 3.2 % (1.7-9.3); NEUTROPHILS # (AUTO) 43.4 K/uL (1.8-7.7); NEUTROPHILS % (AUTO) 92.9 % (42.2-75.2); PLATELET COUNT (AUTO) 113 K/uL (140-450); RED BLOOD CELL COUNT(AUTO) 3.21 MIL/uL (4.20-5.40); RED CELL DISTRIBUTION WIDTH 22.8 % (11.6-13.7)
[2023-11-13 06:08] LABS: WHITE BLOOD COUNT (AUTO) 46.7 K/uL (4.8-10.8)
[2023-11-13 07:13] LABS: ALBUMIN 1.4 g/dL (3.4-5.0); ANION GAP 44.4 (8-16); CALCIUM 6.4 mg/dL (8.5-10.1); CARBON DIOXIDE 18.4 mmol/L (21-32); CREATININE 3.5 mg/dL (0.6-1.3); MAGNESIUM 2.4 mg/dL (1.8-2.4); POTASSIUM 3.8 mmol/L (3.5-5.1); TOTAL BILIRUBIN 6.7 mg/dL (0.0-1.0); TOTAL PROTEIN, SERUM 4.7 g/dL (6.4-8.2)
[2023-11-13] MEDS: FUROSEMIDE 20 MG/2 ML VIAL IVP SCH (12:23)
[2023-11-13] MEDS: MORPHINE SULFATE 2 MG/ML SYR IVP PRN (12:48)
[2023-11-13] MEDS: FUROSEMIDE 40 MG/4 ML VIAL IVP SCH (13:10)
[2023-11-13] MEDS: NOREPINEPHRINE 4 MG in DEXTROSE 5% 250 ML IV PRN (14:19)
[2023-11-13] MEDS: LORazepam 2 MG/ML VIAL IVP PRN (17:38)
[2023-11-13] MEDS: MORPHINE SULFATE 100 MG in NACL 0.9% 90 ML IV SCH (17:54)
[2023-11-13] MEDS: SCOPOLAMINE 1.5 MG/72 HR PATCH TD PRN (17:55)
== END 2023-11-14 09:15 ==
LOC: MED 04:55 → MTU 10:56 → MIC 21:25 → MTU 11-13 21:30
PROVIDERS: ADMIT Internal Medicine; ATTEND Internal Medicine
PROC: 5A0935A Assistance with Respiratory Ventilation, Less than 24 Consecutive Hours, High Flow/Velocity Cannula (ICD-10-PCS; principal; 2023-11-13)
DX: I21.4 Non-ST elevation (NSTEMI) myocardial infarction (principal); I50.33 Acute on chronic diastolic (congestive) heart failure; J96.20 Acute and chronic respiratory failure, unspecified whether with hypoxia or hypercapnia; N17.0 Acute kidney failure with tubular necrosis; J18.9 Pneumonia, unspecified organism; C78.7 Secondary malignant neoplasm of liver and intrahepatic bile duct; C79.70 Secondary malignant neoplasm of unspecified adrenal gland; C79.51 Secondary malignant neoplasm of bone; E87.20 Acidosis, unspecified; I38 Endocarditis, valve unspecified; C34.92 Malignant neoplasm of unspecified part of left bronchus or lung; Z66 Do not resuscitate; D73.5 Infarction of spleen; K72.90 Hepatic failure, unspecified without coma; E03.9 Hypothyroidism, unspecified; K52.89 Other specified noninfective gastroenteritis and colitis; K59.00 Constipation, unspecified; M32.9 Systemic lupus erythematosus, unspecified; R57.8 Other shock; Z85.118 Personal history of other malignant neoplasm of bronchus and lung; Z86.711 Personal history of pulmonary embolism; Z86.718 Personal history of other venous thrombosis and embolism; Z90.710 Acquired absence of both cervix and uterus; Z79.899 Other long term (current) drug therapy; Z88.8 Allergy status to other drugs, medicaments and biological substances; Z79.01 Long term (current) use of anticoagulants
CPT/HCPCS: 36415; 71045; 71275; 74018; 76700; 80048; 80053; 80076; 80202; 81001; 82378; 83605; 83690; 83735; 83880; 84484; 85025; 85610; 85730; 87040; 87081; 87086; 92526; 93005; 94640; 96361; 96365; 96375; 99285; G0480; J0132; J0282; J0696; J1170; J1644; J1720; J1940; J2060; J2270; J2370; J2543; J3370; J3480; J3490; J7030; J7060; Q0092; Q9967